=== PATIENT | female | born 1955 | race Hispanic/Latino ===

== ENCOUNTER 2021-08-29 06:12 | Emergency (ER) | payer OTHER, MEDICARE ==
[~2021-08-29] VITALS: Ht 154.9 cm; Wt 78.9 kg
[2021-08-29] MEDS ORDERED: IBUPROFEN 400 MG TABLET PO ONE (08:00)
[2021-08-29] MEDS ORDERED: IBUPROFEN 200 MG TAB ONE (08:01)
[2021-08-29] MEDS ORDERED: NAPR-1180 PO (08:53)
[2021-08-29 09:15] VITALS: BP 103/47
== END 2021-08-29 09:51 | disposition home or self-care (01) ==
LOC: EDH 06:12
DX: S80.02XA Contusion of left knee, initial encounter (principal); E78.00 Pure hypercholesterolemia, unspecified; Z90.49 Acquired absence of other specified parts of digestive tract; W19.XXXA Unspecified fall, initial encounter; Y93.89 Activity, other specified; Y92.89 Other specified places as the place of occurrence of the external cause; Y99.8 Other external cause status
CPT/HCPCS: 73562; 73564

== ENCOUNTER → 2022-09-10 | Outpatient (CLI) | payer OTHER, MEDICARE ==
[~2022-09-10] MED LIST: NAPR-1180 PO
== END | disposition home or self-care (01) ==
LOC: RAH 10:00
PROVIDERS: ATTEND Internal Medicine
DX: K21.9 Gastro-esophageal reflux disease without esophagitis (principal); K29.70 Gastritis, unspecified, without bleeding; Z90.49 Acquired absence of other specified parts of digestive tract
CPT/HCPCS: 74240